=== PATIENT | male | born 1940 | race Caucasian/White ===

== ENCOUNTER → 2018-06-21 08:57 | Outpatient (CLI) | payer OTHER ==
--- NOTE | 2018-06-21 16:39 | EC ---
PATIENT:GALI TAMEZ DATE OF SERVICE: 06/21/18 SEX: M MEDICAL RECORD: [id number] DATE OF : 40 LOCATION:[facility] AGE OF PATIENT: 78 ADMISSION DATE: 06/21/18 REFERRING PHYSICIAN: INTERPRETING PHYSICIAN: DAX LOVE MD ECHOCARDIOGRAM REPORT ECHO CHARGES 4 ECHO COMPLETE Date: 06/21/18 CLINICAL DIAGNOSIS: CAD ECHOCARDIOGRAPHIC MEASUREMENTS (adult normal given) AC root (d.<3.7cm) 2.7 cm LV Septum d (<1.2 cm> 1.2 cm Valve Excursion 1.2 cm LV Septum (systole) 2.0 cm Left Atria (s.<4.0cm> 4.0 cm LVPW d(<1.2cm) 1.2 cm RV (d.<2.3cm) 2.0 cm LVPW (sytole) 1.9 cm LV diastole(<5.6CM) 4.2 cm MV E-F(>70mm/sec) cm LV systole 2.0 cm LVOT Diameter 2.0 cm MV exc.(>10mm) cm Est.ejection fraction (50-75%) % DOPPLER: LVIT cm/sec A 68.0 cm/sec E 86.0 cm/sec LA cm/sec RVSP 38.4 mmHg LVOT 114 cm/sec AOP1/2T m/s Asc. 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 Love TAPE# PACS Pericardial Effusion N DATE OF SERVICE: 06/21/2018 FINDINGS: 1. Left ventricular chamber size is within normal limits. Left ventricular systolic function is normal. Overall ejection fraction is estimated at 55%. 2. Left atrium is upper limits of normal at 4.0 cm. Right atrium and right ventricular chamber sizes are as well upper limits of normal. 3. Valvular structures have normal structure and motion. 4. Doppler interrogation reveals trace mitral regurgitation and mild tricuspid regurgitation. No other valvular insufficiency or stenosis. Pulmonary systolic ECHOCARDIOGRAM REPORT [id number] GALI TAMEZ pressure is estimated at 38 mmHg. 5. No evidence of pericardial effusion or left ventricular thrombus. TRANSINT:[id number] Voice Confirmation ID: [id number] DOCUMENT ID: [id number] DAX LOVE MD at 1639 CC: [id number] DICTATION DATE: 06/21/18 1128 MOTHER HELPER: 06/21/18 1408 [facility] [address] [id number]
== END | disposition home or self-care (01) ==
LOC: D.ECHO 08:57
DX: I25.10 Atherosclerotic heart disease of native coronary artery without angina pectoris (principal)